=== PATIENT | male | born 1940 | race Caucasian/White ===

== ENCOUNTER 2020-12-03 00:51 | Inpatient (IN) | payer OTHER ==
[2020-12-03] MEDS ORDERED: FAMOTIDINE 20 MG/50 ML IVPB 20 MG/50 ML MG IVPB ONE ×2 (01:16→01:45)
[2020-12-03 01:52] LABS: HEMATOCRIT 35.7 % (35.4-49); HEMOGLOBIN 12.3 GM/dL (11.7-16.9); MCH 30.2 pg (25.7-33.7); MCHC 34.4 g/dl (32.0-35.9); MEAN CELL VOLUME 87.6 fl (80-96); MEAN PLT VOLUME 11.5 fl (7.5-11.1); PLATELET COUNT 125 10^3/uL (134-434); RBC 4.08 M/mm3 (4.00-5.60); RDW 14.7 % (11.9-15.9); WHITE BLOOD COUNT 7.4 K/mm3 (4.0-10.0)
[2020-12-03 02:00] LABS: INR 0.97 (0.83-1.09); PROTHROMBIN TIME (PATIENT) 11.8 SEC (9.7-13.0)
[2020-12-03 02:12] LABS: CHLORIDE 103 mmol/L (98-107)
[2020-12-03 02:15] LABS: ALBUMIN 3.1 g/dl (3.4-5.0); BLOOD UREA NITROGEN 19.1 mg/dL (7-18); CO2 24 mmol/L (21-32); GLUCOSE,RANDOM 89 mg/dL (74-106)
[2020-12-03 02:18] LABS: CREATININE 1.6 mg/dL (0.55-1.3)
[2020-12-03 02:19] LABS: TOT PROT 10.4 g/dl (6.4-8.2)
[2020-12-03] MEDS ORDERED: SODIUM CHLORIDE 0.9% 500 ML INFUS.BAG IV ONE (03:14)
[2020-12-03] MEDS ORDERED: ONDANSETRON 4 MG/2 ML VIAL IVPUSH ONE (03:14)
[2020-12-03] MEDS ORDERED: ACETAMINOPHEN 1000 MG/100 ML VIAL (NON FORMULARY) IVPB ONE (03:14)
[2020-12-03] MEDS ORDERED: ONDANSETRON 4 MG/2 ML VIAL ONE (03:35)
[2020-12-03] MEDS ORDERED: ACETAMINOPHEN INJECTION 100 ML IVPB ONE (03:35)
[2020-12-03 04:25] LABS: ANION GAP -14 MMOL/L (8-16); SODIUM 113 mmol/L (136-145)
[2020-12-03 05:00] LABS: EPI CELLS 11 /uL (0-25.1); HYALINE CASTS 0 /uL (0-3.1); PH,URINE 6.5 (5.0-8.0); URINE APPEARANCE CLEAR; URINE BACTERIA 3138 /uL (0-1359); URINE BILIRUBIN NEGATIVE (NEGATIVE); URINE COLOR YELLOW; URINE GLUCOSE (UA) NEGATIVE (NEGATIVE); URINE KETONE NEGATIVE (NEGATIVE); URINE LEUK ESTERASE TRACE (NEGATIVE); URINE NITRITE NEGATIVE (NEGATIVE); URINE PROTEIN NEGATIVE (NEGATIVE); URINE RBC 6 /uL (0-23.9); URINE UROBILINOGEN 0.2 mg/dL (0.2-1.0); URINE WBC 22 /uL (0-25.8)
[2020-12-03 05:28] LABS: CALCIUM 7.7 mg/dL (8.5-10.1)
[2020-12-03 05:29] LABS: ALBUMIN 3.3 g/dl (3.4-5.0); BLOOD UREA NITROGEN 17.4 mg/dL (7-18)
[2020-12-03 05:32] LABS: CREATININE 1.2 mg/dL (0.55-1.3)
[2020-12-03 05:33] LABS: BILIRUBIN,TOTAL 0.4 mg/dL (0.2-1)
[2020-12-03 05:44] LABS: TOT PROT 6.2 g/dl (6.4-8.2)
[2020-12-03] MEDS ORDERED: ONDANSETRON 4 MG/2 ML VIAL IVPUSH PRN (09:15)
[2020-12-03] MEDS ORDERED: SODIUM CHLORIDE 1,000 ML IV SCH (09:15)
[2020-12-03] MEDS ORDERED: PT OWN MED DRAWER 7, Y5N ONE ×2 (10:27→11:58)
[2020-12-03] MEDS ORDERED: ACETAMINOPHEN 1000 MG/100 ML VIAL (NON FORMULARY) IVPB PRN (10:43)
[2020-12-03] MEDS: D5-1/2NS+10 MEQ KCL - 10 MEQ/1,000 ML INFUS.BAG IV SCH ×2 (12:24→23:07)
[2020-12-03] MEDS ORDERED: MORPHINE SULFATE 2 MG/ML VIAL IVPUSH PRN (15:48)
[2020-12-03] MEDS ORDERED: ATORVASTATIN CA 10 MG TABLET (FP) PO SCH (22:00)
[2020-12-03] MEDS: FAMOTIDINE 20 MG/50 ML IVPB 20 MG/50 ML MG IVPB SCH (23:07)
[2020-12-04 09:48] LABS: BASO % 0.4 % (0-2.0); HEMATOCRIT 39.5 % (35.4-49); HEMOGLOBIN 13.7 GM/dL (11.7-16.9); LYMPH % 18.8 % (8-40); MCH 29.8 pg (25.7-33.7); MCHC 34.7 g/dl (32.0-35.9); MONO % 7.6 % (3.8-10.2); NEUT % 73.2 % (42.8-82.8); PLATELET COUNT 158 10^3/uL (134-434); RDW 13.1 % (11.9-15.9); WHITE BLOOD COUNT 10.2 K/mm3 (4.0-10.0)
[2020-12-04] MEDS ORDERED: amLODIPine BESYLATE 10 MG TABLET (FP) PO SCH (10:00)
[2020-12-04] MEDS ORDERED: LISINOPRIL 20 MG TABLET PO SCH (10:00)
[2020-12-04] MEDS ORDERED: CEFTRIAXONE 1 GM in DEXTROSE 5%-WATER - 50 ML IVPB ONE (10:00)
[2020-12-04] MEDS ORDERED: PATIENT'S OWN MEDICATION (NON-FORMULARY) (Amlodipine Besylate/Benazepril [Lotrel 10-20 Mg PO SCH (10:00)
[2020-12-04 10:14] LABS: CALCIUM 8.1 mg/dL (8.5-10.1)
[2020-12-04 10:15] LABS: ALBUMIN 2.9 g/dl (3.4-5.0); BLOOD UREA NITROGEN 20.4 mg/dL (7-18); MAGNESIUM 1.9 mg/dL (1.8-2.4)
[2020-12-04 10:18] LABS: CREATININE 1.5 mg/dL (0.55-1.3)
[2020-12-04 10:19] LABS: BILIRUBIN,TOTAL 0.7 mg/dL (0.2-1); PHOSPHOROUS 3.6 mg/dL (2.5-4.9)
[2020-12-04] MEDS: FAMOTIDINE 20 MG/50 ML IVPB 20 MG/50 ML MG IVPB SCH ×2 (11:22→21:03)
[2020-12-04] MEDS: D5-1/2NS+10 MEQ KCL - 10 MEQ/1,000 ML INFUS.BAG IV SCH (11:45)
[2020-12-04] MEDS ORDERED: LABETALOL HCL 5 MG/1 ML (100MG/20 ML VIAL) IVPUSH PRN ×2 (14:45→14:49)
[2020-12-04] MEDS ORDERED: METOPROLOL TARTRATE 5 MG/5 ML VIAL IVPB PRN (16:15)
[2020-12-04] MEDS ORDERED: LABETALOL HCL 5 MG/1 ML (100MG/20 ML VIAL) IVPB PRN (16:34)
[2020-12-04 16:43] VITALS: BMI 26.1
[2020-12-04] MEDS ORDERED: DEXTROSE 5%-WATER - 50 ML IVPB ONE (17:48)
[2020-12-04] MEDS ORDERED: AZTREONAM 1 GM VIAL (RESTRICTED TO ID) ONE (17:48)
[2020-12-04] MEDS: AZTREONAM 1 GM in DEXTROSE 5%-WATER - 50 ML IVPB SCH (17:50)
[2020-12-04] MEDS: SODIUM CHLORIDE 0.45% 1,000 ML IV SCH (17:51)
[2020-12-05] MEDS ORDERED: DEXTROSE 5%-WATER - 50 ML IVPB ONE ×2 (04:12→17:38)
[2020-12-05] MEDS ORDERED: AZTREONAM 1 GM VIAL (RESTRICTED TO ID) ONE ×2 (04:12→17:37)
[2020-12-05] MEDS: AZTREONAM 1 GM in DEXTROSE 5%-WATER - 50 ML IVPB SCH ×3 (04:16→19:48)
[2020-12-05] MEDS: SODIUM CHLORIDE 0.45% 1,000 ML IV SCH ×3 (05:57→23:00)
[2020-12-05] MEDS: FAMOTIDINE 20 MG/50 ML IVPB 20 MG/50 ML MG IVPB SCH ×2 (09:15→21:28)
[2020-12-05 09:37] LABS: BASO % 0.4 % (0-2.0); EOS % 0.7 % (0-4.5); HEMATOCRIT 36.7 % (35.4-49); HEMOGLOBIN 12.8 GM/dL (11.7-16.9); LYMPH % 22.1 % (8-40); MCH 30.1 pg (25.7-33.7); MCHC 34.8 g/dl (32.0-35.9); MEAN CELL VOLUME 86.6 fl (80-96); MEAN PLT VOLUME 11.8 fl (7.5-11.1); MONO % 9.3 % (3.8-10.2); NEUT % 67.5 % (42.8-82.8); PLATELET COUNT 133 10^3/uL (134-434); RBC 4.24 M/mm3 (4.00-5.60); RDW 13.2 % (11.9-15.9); WHITE BLOOD COUNT 7.3 K/mm3 (4.0-10.0)
[2020-12-05 09:59] LABS: ALBUMIN 2.7 g/dl (3.4-5.0); BLOOD UREA NITROGEN 26.2 mg/dL (7-18); CALCIUM 8.1 mg/dL (8.5-10.1)
[2020-12-05 10:00] LABS: MAGNESIUM 1.9 mg/dL (1.8-2.4)
[2020-12-05 10:02] LABS: CREATININE 1.4 mg/dL (0.55-1.3)
[2020-12-05 10:03] LABS: PHOSPHOROUS 3.6 mg/dL (2.5-4.9)
[2020-12-05 10:04] LABS: BILIRUBIN,TOTAL 0.6 mg/dL (0.2-1); TOT PROT 5.8 g/dl (6.4-8.2)
[2020-12-06] MEDS ORDERED: DEXTROSE 5%-WATER - 50 ML IVPB ONE ×3 (01:12→18:00)
[2020-12-06] MEDS ORDERED: AZTREONAM 1 GM VIAL (RESTRICTED TO ID) ONE ×3 (01:12→17:59)
[2020-12-06] MEDS: AZTREONAM 1 GM in DEXTROSE 5%-WATER - 50 ML IVPB SCH ×3 (01:28→18:11)
[2020-12-06 08:42] LABS: BASO % 0.5 % (0-2.0); EOS % 2.1 % (0-4.5); HEMATOCRIT 35.3 % (35.4-49); HEMOGLOBIN 12.4 GM/dL (11.7-16.9); LYMPH % 25.1 % (8-40); MCH 30.4 pg (25.7-33.7); MEAN CELL VOLUME 86.8 fl (80-96); MEAN PLT VOLUME 11.7 fl (7.5-11.1); MONO % 8.4 % (3.8-10.2); NEUT % 63.9 % (42.8-82.8); PLATELET COUNT 128 10^3/uL (134-434); RBC 4.07 M/mm3 (4.00-5.60); RDW 13.2 % (11.9-15.9)
[2020-12-06 09:10] LABS: ALBUMIN 2.7 g/dl (3.4-5.0); BILIRUBIN,TOTAL 0.6 mg/dL (0.2-1); TOT PROT 5.6 g/dl (6.4-8.2)
[2020-12-06 09:13] LABS: CALCIUM 7.8 mg/dL (8.5-10.1); CREATININE 1.2 mg/dL (0.55-1.3)
[2020-12-06 09:14] LABS: MAGNESIUM 1.8 mg/dL (1.8-2.4); PHOSPHOROUS 3.7 mg/dL (2.5-4.9)
[2020-12-06 09:36] LABS: BLOOD UREA NITROGEN 25.1 mg/dL (7-18)
[2020-12-06] MEDS: FAMOTIDINE 20 MG/50 ML IVPB 20 MG/50 ML MG IVPB SCH ×2 (10:23→21:14)
[2020-12-06] MEDS ORDERED: SODIUM CHLORIDE 1,000 ML IV SCH (13:15)
[2020-12-06] MEDS ORDERED: PT OWN MED DRAWER 7, Y5N ONE ×2 (14:35→18:00)
[2020-12-06] MEDS: SODIUM CHLORIDE 0.45% 1,000 ML IV SCH (16:29)
[2020-12-07] MEDS ORDERED: AZTREONAM 1 GM VIAL (RESTRICTED TO ID) ONE ×4 (01:44→22:21)
[2020-12-07] MEDS ORDERED: DEXTROSE 5%-WATER - 50 ML IVPB ONE ×4 (01:44→22:21)
[2020-12-07] MEDS: AZTREONAM 1 GM in DEXTROSE 5%-WATER - 50 ML IVPB SCH ×3 (01:47→17:31)
[2020-12-07] MEDS ORDERED: PT OWN MED DRAWER 7, Y5N ONE (09:31)
[2020-12-07 09:34] LABS: BASO % 0.5 % (0-2.0); EOS % 2.3 % (0-4.5); HEMATOCRIT 34.7 % (35.4-49); HEMOGLOBIN 12.1 GM/dL (11.7-16.9); LYMPH % 20.3 % (8-40); MCHC 34.9 g/dl (32.0-35.9); MEAN PLT VOLUME 11.2 fl (7.5-11.1); MONO % 9.2 % (3.8-10.2); NEUT % 67.7 % (42.8-82.8); PLATELET COUNT 126 10^3/uL (134-434); RBC 4.04 M/mm3 (4.00-5.60); RDW 12.9 % (11.9-15.9); WHITE BLOOD COUNT 4.9 K/mm3 (4.0-10.0)
[2020-12-07] MEDS: FAMOTIDINE 20 MG/50 ML IVPB 20 MG/50 ML MG IVPB SCH ×2 (09:35→22:00)
[2020-12-07] MEDS: BRIMONIDINE TARTRATE 0.2% OPHTHALMIC 5 ML BOTTLE OU SCH (09:36)
[2020-12-07] MEDS: TIMOLOL 0.5% OPHTHALMIC SOL 5 ML BOTTLE OU SCH (09:37)
[2020-12-07] MEDS ORDERED: LATANOPROST 0.005% OPHTH SOLN 2.5ML BOTTLE OU SCH (10:00)
[2020-12-07] MEDS ORDERED: PATIENT'S OWN MEDICATION (NON-FORMULARY) (Brimonidine Tartrate/Timolol [Combigan 0.2%-0.5% OU SCH (10:00)
[2020-12-07 10:13] LABS: ALBUMIN 2.8 g/dl (3.4-5.0); BLOOD UREA NITROGEN 21.6 mg/dL (7-18)
[2020-12-07 10:16] LABS: MAGNESIUM 1.8 mg/dL (1.8-2.4)
[2020-12-07 10:20] LABS: TOT PROT 5.8 g/dl (6.4-8.2)
[2020-12-07 10:22] LABS: CREATININE 1.1 mg/dL (0.55-1.3); PHOSPHOROUS 3.4 mg/dL (2.5-4.9)
[2020-12-07 10:32] LABS: BILIRUBIN,TOTAL 0.6 mg/dL (0.2-1)
[2020-12-07] MEDS: SODIUM CHLORIDE 0.45% 1,000 ML IV SCH (17:31)
[2020-12-08] MEDS: AZTREONAM 1 GM in DEXTROSE 5%-WATER - 50 ML IVPB SCH (01:04)
[2020-12-08] MEDS: SODIUM CHLORIDE 0.45% 1,000 ML IV SCH ×2 (01:08→13:47)
[2020-12-08 08:53] LABS: HEMATOCRIT 31.8 % (35.4-49); HEMOGLOBIN 11.2 GM/dL (11.7-16.9); MCH 30.2 pg (25.7-33.7); MCHC 35.4 g/dl (32.0-35.9); MEAN CELL VOLUME 85.4 fl (80-96); MEAN PLT VOLUME 11.1 fl (7.5-11.1); PLATELET COUNT 114 10^3/uL (134-434); RBC 3.72 M/mm3 (4.00-5.60); RDW 12.8 % (11.9-15.9); WHITE BLOOD COUNT 4.3 K/mm3 (4.0-10.0)
[2020-12-08 09:19] LABS: BLOOD UREA NITROGEN 14.8 mg/dL (7-18); MAGNESIUM 1.8 mg/dL (1.8-2.4)
[2020-12-08 09:23] LABS: PHOSPHOROUS 3.5 mg/dL (2.5-4.9)
[2020-12-08] MEDS ORDERED: PT OWN MED DRAWER 7, Y5N ONE (09:38)
[2020-12-08] MEDS: PANTOPRAZOLE 20 MG TABLET PO SCH (09:44)
[2020-12-08] MEDS: BRIMONIDINE TARTRATE 0.2% OPHTHALMIC 5 ML BOTTLE OU SCH (09:45)
[2020-12-08] MEDS: TIMOLOL 0.5% OPHTHALMIC SOL 5 ML BOTTLE OU SCH (09:45)
[2020-12-08] MEDS ORDERED: LATANOPROST 0.005% OPHTH SOLN 2.5ML BOTTLE OU SCH (22:00)
[2020-12-09] MEDS: SODIUM CHLORIDE 0.45% 1,000 ML IV SCH (04:27)
[2020-12-09 09:00] LABS: HEMATOCRIT 33.2 % (35.4-49); HEMOGLOBIN 11.7 GM/dL (11.7-16.9); MCH 30.3 pg (25.7-33.7); MCHC 35.4 g/dl (32.0-35.9); MEAN CELL VOLUME 85.6 fl (80-96); MEAN PLT VOLUME 11.4 fl (7.5-11.1); PLATELET COUNT 122 10^3/uL (134-434); RBC 3.88 M/mm3 (4.00-5.60); RDW 13.1 % (11.9-15.9); WHITE BLOOD COUNT 8.5 K/mm3 (4.0-10.0)
[2020-12-09 09:13] LABS: ALBUMIN 2.8 g/dl (3.4-5.0); BLOOD UREA NITROGEN 10.7 mg/dL (7-18); CALCIUM 8.1 mg/dL (8.5-10.1); MAGNESIUM 1.7 mg/dL (1.8-2.4)
[2020-12-09 09:16] LABS: PHOSPHOROUS 2.6 mg/dL (2.5-4.9)
[2020-12-09 09:18] LABS: BILIRUBIN,TOTAL 0.5 mg/dL (0.2-1); TOT PROT 5.8 g/dl (6.4-8.2)
[2020-12-09] MEDS: TIMOLOL 0.5% OPHTHALMIC SOL 5 ML BOTTLE OU SCH (09:20)
[2020-12-09] MEDS: PANTOPRAZOLE 20 MG TABLET PO SCH (09:20)
[2020-12-09] MEDS: BRIMONIDINE TARTRATE 0.2% OPHTHALMIC 5 ML BOTTLE OU SCH (09:21)
[2020-12-09] MEDS ORDERED: MAGNESIUM SULF 50% (8.12 MEQ/2 ML-1 GM VIAL) IVPB ONE (10:13)
[2020-12-09 14:34] VITALS: BP 118/57; PULSE 78; TEMP 98.4
== END 2020-12-09 15:53 | disposition home or self-care (01) | DRG 389 ==
LOC: JER 00:51 → JERBED 05:32 → J8W 09:14
PROVIDERS: ADMIT Internal Medicine; ATTEND Internal Medicine
PROC: 0D9670Z Drainage of Stomach with Drainage Device, Via Natural or Artificial Opening (ICD-10-PCS; principal; 2020-12-03)
DX: K56.600 Partial intestinal obstruction, unspecified as to cause (principal); N39.0 Urinary tract infection, site not specified; E87.1 Hypo-osmolality and hyponatremia; I10 Essential (primary) hypertension; H40.9 Unspecified glaucoma; M54.9 Dorsalgia, unspecified; E78.5 Hyperlipidemia, unspecified; D72.829 Elevated white blood cell count, unspecified
CPT/HCPCS: 36415; 71045-TC-FY; 74018-TC-FY; 74019-TC-FY; 74176-TC; 80048; 80053; 81003; 83605; 83690; 83735; 84100; 84484; 85025; 85027; 85610; 85730; 87086; 87186; 93005; 93010; 97116-GP; 97161-GP; 99285-25; C9803; J0131; U0003; U0005